=== PATIENT | male | born 2000 | race Caucasian/White ===

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

== ENCOUNTER → 2025-01-30 | Outpatient (REF) | LOC: M LAB 12:11 | PROVIDERS: ATTEND Pathology Forensic Pathology | DX: Z01.89 Encounter for other specified special examinations (principal) ==